=== PATIENT | female | born 1965 | race Caucasian/White ===

== ENCOUNTER 2016-08-15 12:04 | Emergency (ER) | payer OTHER ==
[2016-08-15 13:20] LABS: HGB 14.1 g/dl (12.5-16.0); MCH 32.2 pg (25.0-31.0); MCHC 33.6 g/dL (32.0-36.0); MCV 95.9 fL (78.0-100.0); MPV 9.4 fL (6.0-9.5); RBC 4.38 M/uL (4.20-5.40); RDW 12.7 % (11.5-14.0); WBC 11.2 K/uL (4.0-10.5)
[2016-08-15 13:21] LABS: BILIRUBIN NEGATIVE (NEGATIVE); BLOOD NEGATIVE Ery/uL (NEGATIVE); CLARITY CLEAR (CLEAR); COLOR YELLOW (YELLOW); GLUCOSE (U) NORMAL (NORMAL); KETONE (U) NEGATIVE (NEGATIVE); LEUKOCYTES NEGATIVE Leu/uL (NEGATIVE); NITRITE NEGATIVE (NEGATIVE); PROTEIN NEGATIVE (NEGATIVE); SPECIFIC GRAVITY <=1.005 (1.001-1.030); UROBILINOGEN 0.2 mg/dL (0.2-1.0)
[2016-08-15 13:31] LABS: ALBUMIN 4.5 g/dL (3.5-5.0); BILIRUBIN - TOTAL 0.4 mg/dL (0.1-1.0); CREATININE 0.8 mg/dL (0.5-1.0); GLOBULIN (CALCULATION) 2.7 g/dL (2.2-4.2); TOTAL PROTEIN 7.2 g/dL (6.4-8.3)
== END 2016-08-15 14:55 | disposition home or self-care (01) ==
LOC: FER 12:04
PROVIDERS: Internal Medicine
DX: R11.0 Nausea (principal); R55 Syncope and collapse; F32.9 Major depressive disorder, single episode, unspecified; Z79.899 Other long term (current) drug therapy
CPT/HCPCS: 36415; 80053; 81003; 83690; 84484; 93005

== ENCOUNTER 2021-10-15 10:04 | Emergency (ER) | payer OTHER ==
[~2021-10-15 10:04] MED LIST: ATARAX25 MG PO; COLACE100 MG PO; EFFEXOR-XR 75 M75 MG PO; IBUPROFEN800 MG PO; LIPITOR20 MG PO; PERCOCET 5-3251 EACH PO; PRILOSEC20 MG PO; SEROQUEL 25MG T25 MG PO
[2021-10-15 12:03] LABS: BILIRUBIN NEGATIVE (NEGATIVE); BLOOD NEGATIVE Ery/uL (NEGATIVE); CLARITY CLEAR (CLEAR); COLOR YELLOW (YELLOW); GLUCOSE (U) NORMAL (NORMAL); LEUKOCYTES NEGATIVE Leu/uL (NEGATIVE); NITRITE NEGATIVE (NEGATIVE); PROTEIN NEGATIVE (NEGATIVE); SPECIFIC GRAVITY <=1.005 (1.001-1.030); UROBILINOGEN 0.2 mg/dL (0.2-1.0); pH 6.5 (5.0-9.0)
[2021-10-15 12:09] LABS: BASOPHIL 0.7 % (0-2); EOSINOPHIL 16.8 % (0-5); HCT 26.6 % (37.0-47.0); HGB 8.5 g/dl (12.5-16.0); MCH 35.3 pg (25.0-31.0); MCV 110.4 fL (78.0-100.0); MONOCYTE 10.3 % (0-12); MPV 8.7 fL (6.0-9.5); NEUTROPHIL 33.1 % (41-80); NRBC 0; PLT 170 K/uL (150-400); RBC 2.41 M/uL (4.20-5.40); RDW 16.2 % (11.5-14.0); WBC 12.3 K/uL (4.0-10.5)
[2021-10-15 12:10] LABS: LYMPHOCYTE 38.3 % (15-48)
[2021-10-15 12:24] LABS: ALBUMIN 3.8 g/dL (3.4-5.0); BILIRUBIN - TOTAL 1.1 mg/dL (0.2-1.0); BUN/CREAT RATIO (CALC) 18.3 RATIO; CREATININE 0.71 mg/dL (0.51-0.95); GLOBULIN (CALCULATION) 3.9 g/dL; POTASSIUM 4.2 mmol/L (3.5-5.1); TOTAL PROTEIN 7.7 g/dL (6.4-8.2)
[2021-10-15 12:41] LABS: CORONAVIRUS 2019 SARS-COV-2 NEGATIVE (NEGATIVE); INFLUENZA A NAA NEGATIVE (NEGATIVE)
[2021-10-15 15:08] LABS: IRON % SATURATION 34.5 %SAT (20-50)
[2021-10-15 15:13] LABS: RETICULOCYTE COUNT 11.4 % (1.0-2.0)
[2021-10-15 15:36] LABS: FOLIC ACID (SERUM) 6.8 ng/mL (8.6-58.9)
[2021-10-15] MEDS ORDERED: NORCO 5-325 TA1 EACH PO ×2 (17:38→17:39)
[2021-10-15] MEDS ORDERED: ONDANSETRON ODT4 MG PO (17:38)
== END 2021-10-15 18:04 | disposition home or self-care (01) ==
LOC: FER 10:04
PROVIDERS: Emergency Medicine
DX: D50.9 Iron deficiency anemia, unspecified (principal); R16.1 Splenomegaly, not elsewhere classified; I10 Essential (primary) hypertension; F17.210 Nicotine dependence, cigarettes, uncomplicated; Z20.822 Contact with and (suspected) exposure to COVID-19; Z28.310 Unvaccinated for COVID-19
CPT/HCPCS: 36415; 70450; 80053; 81003; 82607; 82746; 83090; 83540; 83550; 83690; 85025; 86340; 93005; G0480; J3411; J3475; J7030; U0002